=== PATIENT | female | born 1950 | race Two or more races ===

== ENCOUNTER 2017-10-05 18:10 | Emergency (ER) | payer OTHER ==
[~2017-10-05] VITALS: Ht 152.4 cm; Wt 59.0 kg
[~2017-10-05 18:10] MED LIST: ALPRAZOLAM ER1 MG PO; ASPIR 8181 MG; CARVEDILOL25 MG; Invanz IV; METFORMIN HCL500 M2 PO; OMEGA 3-6-9 11200 MG PO; POLY119PG PO; TRICOR145 MG; XANAX XR2 MG PO; ZANTAC300 MG; ZESTRIL40 M1 PO; ZOCOR40 MG
== END 2017-10-05 20:54 | disposition home or self-care (01) ==
LOC: ER 18:10
DX: M25.50 Pain in unspecified joint (principal); M79.1 Myalgia

== ENCOUNTER 2018-11-24 12:36 | Emergency (ER) | payer OTHER ==
[~2018-11-24] VITALS: Ht 154.9 cm; Wt 59.0 kg
[2018-11-24] MEDS ORDERED: NEURONTIN600 MG (13:08)
== END 2018-11-24 17:53 | disposition home or self-care (01) ==
LOC: ER 12:36
DX: K58.8 Other irritable bowel syndrome (principal)

== ENCOUNTER 2019-05-12 15:21 | Emergency (ER) | payer OTHER ==
[~2019-05-12] VITALS: Ht 154.9 cm; Wt 59.0 kg
[~2019-05-12 15:21] MED LIST changes: +NEURONTIN600 MG
== END 2019-05-12 19:00 | disposition home or self-care (01) ==
LOC: ER 15:21
DX: S00.83XA Contusion of other part of head, initial encounter (principal); R10.31 Right lower quadrant pain; W18.09XA Striking against other object with subsequent fall, initial encounter; Y93.89 Activity, other specified; Y92.89 Other specified places as the place of occurrence of the external cause; Y99.8 Other external cause status

== ENCOUNTER 2021-01-06 21:43 | Emergency (ER) | payer OTHER ==
[~2021-01-06] VITALS: Ht 154.9 cm; Wt 62.6 kg
[2021-01-07] MEDS ORDERED: KETO10TA2 PO (03:01)
[2021-01-07] MEDS ORDERED: NORFLEX100MG PO (03:01)
== END 2021-01-07 03:16 | disposition home or self-care (01) ==
LOC: ER 21:43
DX: M54.5 Low back pain (principal); M54.2 Cervicalgia